=== PATIENT | female | born 1940 | race Caucasian/White ===

== ENCOUNTER → 2016-07-10 | Outpatient (CLI) | payer MEDICARE | END | disposition home or self-care (01) | LOC: PCVCCLINIC 15:55 | PROVIDERS: ATTEND Internal Medicine Cardiovascular Disease | DX: E78.00 Pure hypercholesterolemia, unspecified (principal); I95.9 Hypotension, unspecified; R01.1 Cardiac murmur, unspecified; R09.89 Other specified symptoms and signs involving the circulatory and respiratory systems; R07.89 Other chest pain; Z82.49 Family history of ischemic heart disease and other diseases of the circulatory system | CPT/HCPCS: 80061; 93005; G0463 ==

== ENCOUNTER → 2016-07-24 | Outpatient (CLI) | payer MEDICARE | END | disposition home or self-care (01) | LOC: PCVCIMAG 12:45 | PROVIDERS: ATTEND Internal Medicine Cardiovascular Disease | DX: E78.00 Pure hypercholesterolemia, unspecified (principal); R01.1 Cardiac murmur, unspecified; R09.89 Other specified symptoms and signs involving the circulatory and respiratory systems | CPT/HCPCS: 93325; 93351; 93880 ==

== ENCOUNTER → 2017-07-16 | Outpatient (CLI) | payer MEDICARE | END | disposition home or self-care (01) | LOC: PCVCCLINIC 11:20 | DX: E78.00 Pure hypercholesterolemia, unspecified (principal); I95.89 Other hypotension; R01.1 Cardiac murmur, unspecified; Z82.49 Family history of ischemic heart disease and other diseases of the circulatory system; Z79.899 Other long term (current) drug therapy | CPT/HCPCS: 80061; 93005; G0463 ==

== ENCOUNTER → 2018-07-18 | Outpatient (CLI) | payer MEDICARE, OTHER ==
--- NOTE | 2018-07-18 20:37 | PCVCIMAG ---
APPROVED REPORT Study performed: 07/18/2018 14:35:38 Exam: Stress Echocardiogram Indication: Hyperlipidemia, Family history CAD, Dyspnea Patient Location: Echo lab Stress Nurse: Ellie Campos RN Status: routine Ht: 5 ft 1 in HR: 81 bpm BP: 110/70 mmHg Rhythm: NSR Medical History Medical History: Hyperlipidemia, Dyspnea Procedure The patient underwent an Exercise Stress Test using the Cheng Protocol. Blood pressure, heart rate, and EKG were monitored. An Echocardiogram was performed by master automotive glass technician in four stages in quad fashion. At peak stress, four selected images were obtained and placed side by side with resting images for comparison. Stress Test Details Stress Test: Exercise stress testing was performed using a Cheng protocol. HR Resting HR: 96 bpmMax Heart Rate (APMHR): 141 bpm Max HR Achieved: 146 bpmTarget HR (85% APMHR): 119 bpm % of APMHR: 103 Recovery HR: 94 bpm HR response to stress: Normal HR response to stress BP Resting BP: 110/70 mmHg Max BP: 144/70 mmHg Recovery BP: 124/70 mmHg BP response to stress: Normal blood pressure response to stress. ECG Resting ECG: Sinus Rhythm Stress ECG: Sinus Rhythm Recovery ECG: Sinus Rhythm Clinical Reason for Termination: Maximal effort Exercise duration: 6 min sec Highest Stage Achieved: Stage 2: 2.5 mph at 12% grade. Exercise capacity: 6.80 METs Overall Exercise Capacity for Age: Normal Pre-Stress Echo The resting Echocardiogram showed normal left ventricular contractility with an estimated Ejection Fraction of about 55-60%. Normal wall motion in all segments on baseline images. Post-Stress Echo The stress Echocardiogram showed normal left ventricular contractility with an estimated Ejection Fraction of about 60-65%. Normal augmentation of wall motion in all segments on post stress images. Clinical No clinical or ECG evidence for ischemia. Conclusion Clinical Response: Non-ischemic Exercise Capacity: Average Stress ECG Response: Non-ischemic Stress Echo Images: Non-ischemic The left ventricle is normal in size and wall thickness in both the rest and stress images. Aneursymal Atrial Septum is noted. <Conclusion> The left ventricle is normal in size and wall thickness in both the rest and stress images. Aneursymal Atrial Septum is noted.
== END | disposition home or self-care (01) ==
LOC: PCVCIMAG 15:00
PROVIDERS: ATTEND Internal Medicine Cardiovascular Disease
DX: R06.09 Other forms of dyspnea (principal); E78.5 Hyperlipidemia, unspecified; Z82.49 Family history of ischemic heart disease and other diseases of the circulatory system
CPT/HCPCS: 93325; 93351

== ENCOUNTER → 2019-02-06 | Outpatient (CLI) | payer MEDICARE, OTHER ==
--- NOTE | 2019-02-06 14:43 | PCVCIMAG ---
APPROVED REPORT Study performed: 02/06/2019 12:51:51 EXAM: Comprehensive 2D, Doppler, and color-flow Echocardiogram Patient Location: Echo lab Status: routine BSA: 1.48 HR: 80 bpmBP: 140/76 mmHg Rhythm: NSR Other Information Study Quality: Adequate Indications Cardiomegaly Echo Enhancing Agent Indication: Rule out Shunt Agent(s) / Amount(s) Used: Agitated Saline cc Comments: 3 bubble study attempts 2D Dimensions IVSd: 9.63 (7-11mm) LVDd: 27.09 mm PWd: 8.19 (7-11mm)Ascending Ao: 34.93 (22-36mm) LVDs: 20.81 (25-40mm) Left Atrium: 26.00 (27-40mm) Aortic Root: 34.45 mm LV Single Plane 4CH: 54.33 % LV Single Plane 2CH: 62.21 % Biplane EF: 58.6 % Volumes Left Atrial Volume (Systole) Single Plane 4CH: 38.12 mLSingle Plane 2CH: 37.07 mL LA ESV Index: 26.00 mL/m2 Aortic Valve AoV Peak Jeremias.: 1.65 m/s AO Peak Gr.: 10.84 mmHgLVOT Max P.49 mmHg LVOT Max V: 1.06 m/s AI Vmax: 3.57 m/s AI [place]: 3.14 m/s2 AI PHT: 337.51 ms Mitral Valve E/A Ratio: 0.8 MV Decel. Time: 270.12 ms MV E Max Jeremias.: 0.87 m/s MV A Jeremias.: 1.06 m/s IVRT: 103.81 ms Pulmonary Valve PV Peak Jeremias.: 0.81 m/sPV Peak Gr.: 2.63 mmHg Pulmonary Vein P Vein S: 0.36 m/sP Vein A: 0.43 m/s P Vein D: 0.41 m/sP Vein A Dur.: 145.3 msec P Vein S/D Ratio: 0.88 Tricuspid Valve TR Peak Jeremias.: 2.75 m/s TR Peak Gr.: 30.15 mmHg TV Vmax: 2.04 m/s Left Ventricle The left ventricle is normal size. There is normal LV segmental wall motion. There is normal left ventricular wall thickness. Left ventricular systolic function is normal. The left ventricular ejection fraction is within the normal range. LVEF is 55-60%. Grade I - abnormal relaxation pattern. Right Ventricle The right ventricle is normal size. The right ventricular systolic function is normal. Atria The left atrium size is normal. Atrial septal aneurysm is present with PFO. Positive bubble study with valsalva maneuver. The right atrium size is normal. Aortic Valve The aortic valve is normal in structure. Mild to moderate aortic regurgitation. There is no aortic valvular stenosis. Mitral Valve The mitral valve is normal in structure. Mild to moderate mitral regurgitation. No evidence of mitral valve stenosis. Tricuspid Valve The tricuspid valve is normal in structure. Mild tricuspid regurgitation with PAP of 39 mmHg. Pulmonic Valve The pulmonary valve is normal in structure. There is no pulmonic valvular regurgitation. Great Vessels The aortic root is normal in size. IVC is normal in size and collapses >50% with inspiration. Pericardium There is no pericardial effusion. There is no pleural effusion. <Conclusion> The left ventricle is normal size. LVEF is 55-60%. Grade I - abnormal relaxation pattern. Grade I - abnormal relaxation pattern. The right ventricle is normal size. The left atrium size is normal. Atrial septal aneurysm is present with PFO. Positive bubble study with valsalva maneuver. Mild to moderate aortic regurgitation. Mild to moderate mitral regurgitation. Mild tricuspid regurgitation with PAP of 39 mmHg. Mild tricuspid regurgitation with PAP of 39 mmHg. The aortic root is normal in size. There is no pericardial effusion.
== END | disposition home or self-care (01) ==
LOC: PCVCIMAG 13:25
PROVIDERS: ATTEND Internal Medicine Cardiovascular Disease
DX: I08.3 Combined rheumatic disorders of mitral, aortic and tricuspid valves (principal); E78.00 Pure hypercholesterolemia, unspecified; Z88.0 Allergy status to penicillin
CPT/HCPCS: 36415; 80061; 93005; 93306; G0463